=== PATIENT | female | born 1960 | race Caucasian/White ===

== ENCOUNTER 2023-06-07 12:39 | Emergency (ER) | payer OTHER ==
[~2023-06-07] VITALS: Ht 152.4 cm; Wt 59.0 kg
[2023-06-07 12:51] VITALS: BP 192/73; PULSE 79; RESP 18; TEMP 98; O2SAT 100
== END 2023-06-07 17:19 | disposition left against medical advice (07) ==
LOC: ER 14:06
DX: R10.9 Unspecified abdominal pain (principal); E11.9 Type 2 diabetes mellitus without complications; I10 Essential (primary) hypertension; Z98.890 Other specified postprocedural states; Z90.49 Acquired absence of other specified parts of digestive tract; Z48.00 Encounter for change or removal of nonsurgical wound dressing
CPT/HCPCS: 99281